=== PATIENT | male | born 1985 | race Caucasian/White ===

== ENCOUNTER 2018-03-21 23:50 | Emergency (ER) | payer SELFPAY ==
[~2018-03-21] VITALS: Ht 182.9 cm; Wt 113.6 kg
[2018-03-21 23:57] VITALS: Ht 182.9 cm; Wt 113.6 kg
[2018-03-22] MEDS ORDERED: VOLTAREN75 MG PO (01:49)
[2018-03-22] MEDS ORDERED: VIBRAMYCIN 100100 MG PO (01:49)
[2018-03-22 02:26] VITALS: BP 135/89
== END 2018-03-22 01:50 | disposition home or self-care (01) ==
LOC: D.ER 23:50
DX: L03.114 Cellulitis of left upper limb (principal); S60.562A Insect bite (nonvenomous) of left hand, initial encounter; W57.XXXA Bitten or stung by nonvenomous insect and other nonvenomous arthropods, initial encounter; Y93.89 Activity, other specified; Y92.019 Unspecified place in single-family (private) house as the place of occurrence of the external cause; F17.200 Nicotine dependence, unspecified, uncomplicated

== ENCOUNTER 2018-04-01 08:22 | Emergency (ER) | payer SELFPAY ==
[~2018-04-01] VITALS: Ht 182.9 cm; Wt 109.1 kg
[~2018-04-01 08:22] MED LIST: VIBRAMYCIN 100100 MG PO; VOLTAREN75 MG PO
[2018-04-01 08:28] VITALS: Ht 182.9 cm; Wt 109.1 kg
[2018-04-01] MEDS ORDERED: NORCO 7.5/325 T1 TA1 PO (08:55)
[2018-04-01 09:05] VITALS: BP 136/87
== END 2018-04-01 09:07 | disposition home or self-care (01) ==
LOC: D.ER 08:22
DX: R07.89 Other chest pain (principal); V43.52XA Car driver injured in collision with other type car in traffic accident, initial encounter; Y93.89 Activity, other specified; Y92.410 Unspecified street and highway as the place of occurrence of the external cause; F17.200 Nicotine dependence, unspecified, uncomplicated

== ENCOUNTER 2018-09-06 11:21 | Emergency (ER) | payer SELFPAY ==
[~2018-09-06] VITALS: Ht 182.9 cm; Wt 113.6 kg
[~2018-09-06 11:21] MED LIST changes: +NORCO 7.5/325 T1 TA1 PO
[2018-09-06 12:09] VITALS: BP 116/79; Ht 182.9 cm; Wt 113.6 kg
[2018-09-06 16:47] LABS: BASOPHILS 0.4 % (0-2); EOSINOPHILS 2.4 % (0-7); HEMATOCRIT 41.7 % (42.0-54.0); HEMOGLOBIN 13.7 g/dL (13.5-17.5); IMMATURE GRANULOCYTES 0.4 % (0-5); LYMPHOCYTES 30.8 % (15-50); MCH 28.9 pg (26.0-34.0); MCHC 32.9 g/dL (31.0-37.0); MEAN PLATELET VOLUME 9.6 fL (7.4-10.4); MONOCYTES 8.9 % (2-11); NEUTROPHILS 57.1 % (40-80); PLATELET COUNT 378 10x3/uL (130-400); RBC 4.74 10x6/uL (4.20-6.10); RDW 13.9 % (11.5-14.5); WBC 9.7 10x3/uL (4.8-10.8)
[2018-09-06 17:32] LABS: ALBUMIN 3.3 g/dL (3.4-5.0); ALKALINE PHOSPHATASE 109 U/L (46-116); ALT (SGPT) 31 U/L (10-68); BILIRUBIN - TOTAL 0.25 mg/dL (0.2-1.3); CALC OSMOLALITY 273 mosm/kg (275-300); CARBON DIOXIDE 30.7 mmol/L (21.0-32.0); CHLORIDE - SERUM 102 mmol/L (98-107); GLUCOSE 91 mg/dL (74-106); POTASSIUM - SERUM 3.5 mmol/L (3.5-5.1); PROTEIN - SERUM 7.2 g/dL (6.4-8.2); SODIUM 137 mmol/L (136-145); UREA NITROGEN 12 mg/dL (7-18); eGFR NON AFRICAN AMERICAN > 90 mL/min (90-120)
[2018-09-06 17:41] LABS: PRO BNP 26 pg/mL (0-125)
[2018-09-06] MEDS ORDERED: MONODOX100 MG PO (18:27)
== END 2018-09-06 20:33 | disposition home or self-care (01) ==
LOC: D.ER 11:21
PROVIDERS: Emergency Medicine
DX: L08.9 Local infection of the skin and subcutaneous tissue, unspecified (principal); R60.0 Localized edema; F17.200 Nicotine dependence, unspecified, uncomplicated